=== PATIENT | female | born 1970 | race Two or more races ===

== ENCOUNTER 2022-04-14 18:31 | Emergency (ER) | payer OTHER, MEDICAID ==
[~2022-04-14] VITALS: Ht 162.6 cm; Wt 72.0 kg
[2022-04-14 18:53] VITALS: BP 158/69
== END 2022-04-14 21:00 | disposition left against medical advice (07) ==
LOC: EDBD 18:31 → ER 18:31
DX: S20.229A Contusion of unspecified back wall of thorax, initial encounter (principal); S40.022A Contusion of left upper arm, initial encounter; S40.021A Contusion of right upper arm, initial encounter; Z53.29 Procedure and treatment not carried out because of patient's decision for other reasons; Z98.51 Tubal ligation status; Z85.3 Personal history of malignant neoplasm of breast; Y04.8XXA Assault by other bodily force, initial encounter; Y93.89 Activity, other specified; Y92.89 Other specified places as the place of occurrence of the external cause; Y99.8 Other external cause status